=== PATIENT | female | born 1995 | race Caucasian/White ===

== ENCOUNTER 2016-05-10 16:39 | Emergency (ER) | payer BC ==
[~2016-05-10] VITALS: Ht 170.2 cm; Wt 64.4 kg
[~2016-05-10 16:39] MED LIST: BCPILLS PO
[2016-05-10 16:48] VITALS: TEMP 37.4; Ht 170.2 cm; Wt 64.4 kg
[2016-05-10] MEDS ORDERED: SODIUM CHLORIDE 0.9% 1000ML 1,000 ML IV STA (18:07)
[2016-05-10] MEDS ORDERED: SODIUM CHLORIDE 0.9% 1000ML 1,000 ML IV ONE (18:07)
[2016-05-10] MEDS ORDERED: KETOROLAC TROMETHAMINE 30 MG/ML VIAL IV STA (18:07)
--- NOTE | 2016-05-10 18:24 | EMERGENCY ROOM VISIT NOTE ---
History Report prepared by Eric: Van Avery Under the Supervision of: Dr. Wilver Kenney M.D. First contact with patient: 17:58 Chief Complaint: FLU LIKE SX Stated Complaint: BACK ACHES, VOMITING, FEVER 100, NUMB HANDS/FEET History of Present Illness The patient is a 21 year old female who presents to the Emergency Room with complaints of a persistent illness beginning a month ago. Her symptoms include back pain radiating into her neck, fevers, vomiting, resolved abdominal pain, fatigue, and body aches. She has a history of pneumonia, and feels that she likely has pneumonia. The patient has associated chest pain, numbness in the fingers and toes, shortness of breath and headaches. She denies any sore throat , weakness, or leg pain. She states that her symptoms started with intermittent chest cold-like symptoms. The patient denies any chance of . Her LNMP was last week. 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 The patient notes that she has a history of anemia. She also notes that her boyfriend has not had any similar symptoms. Source of History: patient, spouse/significant other Onset: a month ago Quality: other (Illness) Timing: other (persistent) Associated Symptoms: + SOB, + abdominal pain (resolved), + chest pain, + fatigue, + fevers, + headache, + neck pain, + numbness (fingers and toes), + vomiting, No sorethroat, No weakness Note: The patient has associated body aches. She denies any leg pain. Review of Systems See HPI for pertinent positives & negatives. A total of 10 systems reviewed and were otherwise negative. Past Medical & Surgical Medical Problems: (1) No Known Active Medical Problems (2) Pneumonia (3) Tonsillectomy (4) [place] Teeth Removal Old medical records were reviewed. Nurse's notes were reviewed and I agree with. Family History No pertinent family history stated. Social History Smoking Status: Former Smoker Alcohol Use: occasionally Drug Use: none Marital Status: single Housing Status: lives with family Occupation Status: employed Current/Historical Medications Scheduled Control Pills ( Control Pills), 1 TAB PO DAILY Allergies Coded Allergies: Coconut (Unverified Allergy, Unknown, hives, 05/10/16) Physical Exam Vital Signs Date Time Temp Pulse Resp B/P Pulse Ox O2 Delivery O2 Flow Rate FiO2 05/10/16 21:04 58 18 108/70 98 Room Air 05/10/16 18:35 60 18 129/88 100 Room Air 05/10/16 16:48 37.4 103 17 124/77 98 Room Air Physical Exam General: Well developed, well nourished, non-ill appearing young female in no acute distress, breathing comfortably on room air. Normal speech HEENT: Normal cephalic atraumatic. Pupils are equal round and reactive to light. Extraocular movements are intact. Oropharynx is pink with moist mucous membranes. Tonsils have been removed surgically. No swelling of the mouth lips or tongue. Neck: Supple with a midline trachea. No meningeal signs or stiffness, no JVD or bruits. No Stridor. Chest: Clear to auscultation bilaterally. No wheezes or rhonchi. No increased work of breathing. Heart: regular rate and rhythm. Abdomen: Soft nontender, nondistended without rebound guarding or rigidity. Extremities: No cyanosis clubbing or edema. No calf tenderness or assymetry Spine/Back. Non tender to palpation. No CVA tenderness Skin: Good turgor without rashes. Neurologic exam: Cranial nerves two through 12 are intact. Motor and sensation are intact and symmetrical throughout. Medical Decision & Procedures ER Provider Diagnostic Interpretation: X ray results as stated below per my interpretation and radiologist interpretation. Other radiology results as stated below per my review and radiologist interpretation: CHEST CTA for PULMONARY ARTERIES FINDINGS: There is a normal caliber thoracic aorta with no evidence for dissection. There is no evidence for pulmonary embolus. No pleural effusions. No pneumothorax. The liver and spleen are unremarkable. No mediastinal or hilar lymphadenopathy. The central airways are patent. The lungs are clear. Small amount of soft tissue density within the anterior mediastinum favors residual thymic tissue given the patient's age. IMPRESSION: No evidence for pulmonary embolus. Electronically signed by: Rey Griffin M.D. CHEST ONE VIEW PORTABLE FINDINGS: The lungs are clear. Cardiac silhouette is normal in size. No pleural effusions. No pneumothorax. IMPRESSION: No acute process. Electronically signed by: Rey Griffin M.D. Laboratory Results 05/10/16 18:25 Red Blood Count 5.17, Mean Corpuscular Volume 86.5, Mean Corpuscular Hemoglobin 29.6, Mean Corpuscular Hemoglobin Concent 34.2, Mean Platelet Volume 9.3, Neutrophils (%) (Auto) 78.1, Lymphocytes (%) (Auto) 17.8, Monocytes (%) (Auto) 2.9, Eosinophils (%) (Auto) 1.0, Basophils (%) (Auto) 0.0, Neutrophils # (Auto) 4.52, Lymphocytes # (Auto) 1.03, Monocytes # (Auto) 0.17, Eosinophils # (Auto) 0.06, Basophils # (Auto) 0.00 05/10/16 18:25 Test 05/10/16 18:25 05/10/16 18:26 05/10/16 18:31 White Blood Count 5.79 K/uL (4.8-10.8) Red Blood Count 5.17 M/uL (4.2-5.4) Hemoglobin 15.3 g/dL (12.0-16.0) Hematocrit 44.7 % (37-47) Mean Corpuscular Volume 86.5 fL (80-100) Mean Corpuscular Hemoglobin 29.6 pg (25-34) Mean Corpuscular Hemoglobin Concent 34.2 g/dl (32-36) Platelet Count 202 K/uL (130-400) Mean Platelet Volume 9.3 fL (7.4-10.4) Neutrophils (%) (Auto) 78.1 % Lymphocytes (%) (Auto) 17.8 % Monocytes (%) (Auto) 2.9 % Eosinophils (%) (Auto) 1.0 % Basophils (%) (Auto) 0.0 % Neutrophils # (Auto) 4.52 K/uL (1.4-6.5) Lymphocytes # (Auto) 1.03 K/uL (1.2-3.4) Monocytes # (Auto) 0.17 K/uL (0.11-0.59) Eosinophils # (Auto) 0.06 K/uL (0-0.5) Basophils # (Auto) 0.00 K/uL (0-0.2) RDW Standard Deviation 40.2 fL (36.4-46.3) RDW Coefficient of Variation 12.6 % (11.5-14.5) Immature Granulocyte % (Auto) 0.2 % Immature Granulocyte # (Auto) 0.01 K/uL (0.00-0.02) Anion Gap 12.0 mmol/L (3-11) Est Creatinine Clear Calc Drug Dose 116.6 ml/min Estimated GFR () 134.5 Estimated GFR (Non- 116.1 BUN/Creatinine Ratio 16.7 (10-20) Calcium Level 8.6 mg/dl (8.5-10.1) Total Bilirubin 1.3 mg/dl (0.2-1) Direct Bilirubin 0.3 mg/dl (0-0.2) Aspartate Amino Transf (AST/SGOT) 18 U/L (15-37) Alanine Aminotransferase (ALT/SGPT) 33 U/L (12-78) Alkaline Phosphatase 65 U/L (45-117) Total Protein 7.3 gm/dl (6.4-8.2) Albumin 4.1 gm/dl (3.4-5.0) Lipase 158 U/L (73-393) Human Chorionic Gonadotropin, Qual NEG (NEG) Monoscreen NEG (NEG) Bedside D-Dimer > 450 ng/mlFEU (0-450) Urine Color YELLOW Urine Appearance CLOUDY (CLEAR) Urine pH 6.5 (4.5-7.5) Urine Specific [place] 1.021 (1.000-1.030) Urine Protein NEG (NEG) Urine Glucose (UA) NEG (NEG) Urine Ketones NEG (NEG) Urine Occult Blood NEG (NEG) Urine Nitrite NEG (NEG) Urine Bilirubin NEG (NEG) Urine Urobilinogen NEG (NEG) Urine Leukocyte Esterase NEG (NEG) Urine WBC (Auto) 10-30 /hpf (0-5) Urine RBC (Auto) 0-4 /hpf (0-4) Urine Hyaline Casts (Auto) 5-10 /lpf (0-5) Urine Epithelial Cells (Auto) >30 /lpf (0-5) Urine Bacteria (Auto) 2+ (NEG) Date/Time Source Procedure Growth Status 05/10/16 18:31 Urine , Clean Catch Urine Culture - Final MORE THAN THREE TYPES OF ORGANISMS VT... Complete Laboratory studies as stated above per my review. Medications Administered Medications (Trade) Dose Ordered Sig/Janki Route Start Time Stop Time Status Last Admin Dose Admin Sodium Chloride 1,000 ml @ 999 mls/hr Q1H1M STAT IV 05/10/16 18:07 05/10/16 19:07 DC 1/3/17 18:25 999 MLS/HR Sodium Chloride (Nss 1000ml) 1,000 ml @ 200 mls/hr Q5H ONCE IV 05/10/16 18:07 05/10/16 21:33 DC 05/10/16 18:07 200 MLS/HR Ketorolac Tromethamine (Toradol Inj) 30 mg NOW STAT IV 05/10/16 18:07 05/10/16 18:09 DC 05/10/16 18:28 30 MG Morphine Sulfate (MoRPHine SULFATE INJ) 4 mg NOW STAT IV 05/10/16 19:09 05/10/16 19:10 DC 05/10/16 19:25 4 MG Ondansetron HCl (Zofran Inj) 4 mg NOW STAT IV 05/10/16 19:09 05/10/16 19:10 DC 05/10/16 19:25 4 MG ED Course 1800: Past medical records reviewed. The patient was evaluated in room A9B, and a complete history and physical examination were performed. 1806: Ordered Toradol Inj 30 mg IV, NSS 1000 mL @ 200 mL/hr IV, NSS 1000 mL @ 999 mL/hr IV. 1908: Ordered Zofran Inj 4 mg IV, Morphine Sulfate 4 mg IV. 2054: Upon reevaluation, the patient is resting comfortably. I discussed the results and treatment plan with her. The patient verbalized agreement of the treatment plan. The patient was discharged home. Medical Decision Differentials include, but are not limited to; pneumonia, bronchitis, mononucleosis, dehydration, viral illness, sepsis, PE, and UTI. This patient comes in as described above. She was placed in room A9. She is having mid back pain bilaterally. She's been coughing a lot and has had some flulike symptoms over the last several days. She looks well on exam and appears in no distress.. She's not hypoxemic. She sita stable vital signs. IV access was established and she was hydrated with normal saline. She had a chest x-ray and multiple blood testing obtained and there is no pneumonia seen. She has no significant electrolyte or metabolic abnormalities. She has normal kidney function. D-dimer did come back elevated and in light of this, I did do a chest CT and there is no evidence of PE. Her urinalysis suggest a suboptimal specimen. I do not think clinically she has a UTI . her symptoms are much higher than the kidneys, I did run a culture. I think she likely has muscloskeletal pain from coughing a lot. She shoulduse ibuprofen for pain. Most likely is a viral illness and she several days into it and will be out of the Tamiflu benefit window. She was encouraged to return if: worsening of symptoms, fever or chills, shortness of breath, any new problems concerns. She is happy with plan and discharged to home. Impression Primary Impression: Back pain Additional Impression: Influenza A Scribe Attestation The scribe's documentation has been prepared under my direction and personally reviewed by me in its entirety. I confirm that the note above accurately reflects all work, treatment, procedures, and medical decision making performed by me. Departure Information Dispostion Home / Self-Care Referrals Earl Pelayo D.O. Pulmonary (PCP) Forms HOME CARE DOCUMENTATION FORM, IMPORTANT VISIT INFORMATION Patient Instructions A Signature Page, My [facility] Additional Instructions Rest. Drink plenty of fluids. Use Tylenol or ibuprofen in [id number] dosages if needed for pain Not exceed [id number] dosage Return if increasing pain, shortness of breath, worsening of symptoms, fever chills, any new problems or concerns. Follow-up with doctor this week for recheck or return to ER if symptoms worsen.
--- NOTE | 2016-05-10 18:35 | DIAGNOSTIC IMAGING REPORT ---
CHEST ONE VIEW PORTABLE HISTORY: Atypical CHEST PAIN COMPARISON: Chest 05/14/2013. FINDINGS: The lungs are clear. Cardiac silhouette is normal in size. No pleural effusions. No pneumothorax. IMPRESSION: No acute process. Electronically signed by: Rey Griffin M.D. 05/10/2016 6:33 PM
[2016-05-10 18:39] LABS: COMPLETE YES; HEMATOCRIT 44.7 % (37-47); IG% 0.2 %; LYMPH % 17.8 %; LYMPH ABS # 1.03 K/uL (1.2-3.4); MEAN CELL VOLUME 86.5 fL (80-100); MEAN CORPUSCULAR HEMOGLOBIN 29.6 pg (25-34); MEAN CORPUSCULAR HGB CONC 34.2 g/dl (32-36); MEAN PLATELET VOLUME 9.3 fL (7.4-10.4); MONO % 2.9 %; NEUT % 78.1 %; PLATELET COUNT 202 K/uL (130-400); RED BLOOD COUNT 5.17 M/uL (4.2-5.4); WHITE BLOOD COUNT 5.79 K/uL (4.8-10.8)
[2016-05-10 18:58] LABS: URINE APPEARANCE CLOUDY (CLEAR); URINE BILIRUBIN NEG (NEG); URINE COLOR YELLOW; URINE EPITHELIAL CELL AUTO >30 /lpf (0-5); URINE NITRITE NEG (NEG); URINE PH 6.5 (4.5-7.5); URINE SPECIFIC GRAVITY 1.021 (1.000-1.030); UROBILINOGEN NEG (NEG)
[2016-05-10 19:02] LABS: PREG INTERNAL NEGATIVE QC NEG CLEAR BACKGROUND; PREG INTERNAL POSITIVE QC POS CONTROL LINE
[2016-05-10 19:04] LABS: MANUAL MICROSCOPIC REQUIRED? NO; REVIEW REQ? NO
[2016-05-10] MEDS ORDERED: ONDANSETRON INJ 2 MG/ML 2 ML VIAL IV STA (19:09)
[2016-05-10] MEDS ORDERED: MoRPHine SULFATE 4 MG/ML 1 ML CARP\\VIAL IV STA (19:09)
[2016-05-10 19:10] LABS: BUN/CREATININE RATIO 16.7 (10-20); CALCIUM 8.6 mg/dl (8.5-10.1); CREATININE 0.73 mg/dl (0.60-1.20); POTASSIUM 3.6 mmol/L (3.5-5.1)
[2016-05-10] MEDS ORDERED: OPTIRAY 320 IV PRN (19:15)
--- NOTE | 2016-05-10 20:05 | DIAGNOSTIC IMAGING REPORT ---
CHEST CTA for PULMONARY ARTERIES CT DOSE: 262.00 mGy.cm HISTORY: Atypical chest pain. TECHNIQUE: Multiaxial CT images of the chest were performed following the intravenous administration of contrast to evaluate the pulmonary arteries. Maximal intensity projection images were also obtained. COMPARISON STUDY: None. FINDINGS: There is a normal caliber thoracic aorta with no evidence for dissection. There is no evidence for pulmonary embolus. No pleural effusions. No pneumothorax. The liver and spleen are unremarkable. No mediastinal or hilar lymphadenopathy. The central airways are patent. The lungs are clear. Small amount of soft tissue density within the anterior mediastinum favors residual thymic tissue given the patient's age. IMPRESSION: No evidence for pulmonary embolus. Electronically signed by: Rey Griffin M.D. 05/10/2016 8:03 PM
[2016-05-10 21:04] VITALS: BP 108/70; PULSE 58; O2SAT 98
== END 2016-05-10 21:05 | disposition home or self-care (01) ==
LOC: C.EDB 16:41 → C.EDA 21:05
DX: J09.X2 Influenza due to identified novel influenza A virus with other respiratory manifestations (principal); M54.9 Dorsalgia, unspecified; Z90.49 Acquired absence of other specified parts of digestive tract; Z87.891 Personal history of nicotine dependence; Z91.018 Allergy to other foods